=== PATIENT | female | born 1970 ===

== ENCOUNTER 2017-07-15 05:13 | Inpatient (IN) | payer MEDICAID, OTHER ==
[2017-07-15 05:20] VITALS: BMI 29.6
[2017-07-15] MEDS ORDERED: Sodium Chloride 0.9% 1,000 ML IV STA (05:34)
[2017-07-15] MEDS ORDERED: Iohexol 240 (50 ml) PO ONE ×2 (05:34)
[2017-07-15] MEDS ORDERED: Iohexol 240 (50 ml) ONE (05:41)
[2017-07-15 05:42] LABS: BASO # 0.1 K/uL (0.0-0.2); EOS # 0.2 K/uL (0.0-0.7); EOS % 1.9 % (0.0-4.0); HEMOGLOBIN 13.2 g/dL (12.0-16.0); LYMPH # 2.3 K/uL (1.0-4.3); LYMPH % 23.2 % (20.0-40.0); MEAN CELL VOLUME 88.7 fl (81.0-99.0); MEAN CORPUSCULAR HEMOGLOBIN 29.6 pg (27.0-31.0); MEAN CORPUSCULAR HGB CONC 33.4 g/dL (33.0-37.0); MEAN PLATELET VOLUME 8.4 fl (7.2-11.7); MONO # 0.8 K/uL (0.0-0.8); MONO % 7.8 % (0.0-10.0); NEUT # 6.5 K/uL (1.8-7.0); NEUT % 66.1 % (50.0-75.0); RBC 4.45 Mil/uL (3.80-5.20); RED CELL DISTRIBUTION WIDTH 13.1 % (11.5-14.5); WHITE BLOOD COUNT 9.8 K/uL (4.8-10.8)
[2017-07-15 05:48] LABS: URINE BACTERIA RARE (<OCC); URINE BILIRUBIN NEGATIVE (NEGATIVE); URINE BLOOD SMALL (NEGATIVE); URINE CLARITY CLEAR (Clear); URINE COLOR STRAW (YELLOW); URINE GLUCOSE (UA) NEG (Normal); URINE LEUKOCYTE ESTERASE NEG Leu/uL (Negative); URINE NITRATE NEGATIVE (NEGATIVE); URINE PROTEIN NEGATIVE (NEGATIVE); URINE UROBILINOGEN 0.2-1.0 mg/dL (0.2-1.0)
--- NOTE | 2017-07-15 05:49 | ED PDOC ---
HPI: Abdomen Time Seen by Provider: 07/15/17 05:20 Chief Complaint (Nursing): Abdominal Pain Chief Complaint (Provider): Abdominal Pain History Per: Patient History/Exam Limitations: no limitations Onset/Duration Of Symptoms: Hrs (x8) Current Symptoms Are (Timing): Still Present Location Of Pain/Discomfort: RUQ, RLQ Associated Symptoms: denies: Diarrhea Additional Complaint(s): 46 year old female presents to ED with complaints of right-sided abdominal pain x8 hours and has no past medical history. (+) nausea and forced vomiting. (-) diarrhea, head ache, sore throat, or body aches. Denies ever experiencing a similar pain in the past. PCP: Rodrick Amanda Past Medical History Reviewed: Historical Data, Nursing Documentation, Vital Signs Vital Signs: Last Vital Signs Temp 98.6 F 07/15/17 05:20 Pulse 100 H 07/15/17 05:20 Resp 16 07/15/17 05:20 BP 152/99 H 07/15/17 05:20 Pulse Ox 96 07/15/17 05:52 - Medical History PMH: No Chronic Diseases - Surgical History Surgical History: Denies: No Surg Hx Other surgeries: Abdominoplasty, tubal ligation - Family History Family History: States: No Known Family Hx - Social History Alcohol: None Drugs: Denies - Home Medications Home Medications: Ambulatory Orders Medication Instructions Recorded Albuterol HFA [Ventolin HFA 90 2 puff IH R3THHIN PRN #0 puff 03/28/16 mcg/actuation (8 g)] Azithromycin [Zithromax] 250 mg PO DAILY #6 tab 03/28/16 Promethazine DM [Phenergan DM Oral 5 ml PO Q8 PRN #120 ml 03/28/16 Syrup] - Allergies Allergies/Adverse Reactions: Allergies Allergy/AdvReac Type Severity Reaction Status Date / Time Sulfa (Sulfonamide Allergy RASH Verified 07/15/17 05:20 Antibiotics) Review of Systems ROS Statement: Except As Marked, All Systems Reviewed And Found Negative Constitutional: Negative for: Other ((-) body aches) ENT: Negative for: Throat Pain Gastrointestinal: Positive for: Nausea, Vomiting (forced), Abdominal Pain (right -sided). Negative for: Diarrhea Neurological: Negative for: Headache Physical Exam - Reviewed Nursing Documentation Reviewed: Yes Vital Signs Reviewed: Yes - Physical Exam Appears: Positive for: Non-toxic. Negative for: No Acute Distress (mild painful distress) Skin: Positive for: Normal Color, Warm, Dry Eye Exam: Positive for: Normal appearance ENT: Positive for: Normal ENT Inspection Cardiovascular/Chest: Positive for: Regular Rate, Rhythm. Negative for: Murmur Respiratory: Positive for: Normal Breath Sounds. Negative for: Respiratory Distress Gastrointestinal/Abdominal: Positive for: Soft, Tenderness (right-sided abdominal tenderness. RLQ>RUQ in tenderness) Extremity: Positive for: Normal ROM. Negative for: Deformity Neurologic/Psych: Positive for: Alert, Oriented. Negative for: Motor/Sensory Deficits - Laboratory Results Result Diagrams: 07/15/17 05:30 - ECG O2 Sat by Pulse Oximetry: 96 (RA) Pulse Ox Interpretation: Normal Medical Decision Making Medical Decision Makin Initial plan: * CTA A/P * Labs * Lipase * NS IV * Iohexol 50mL PO * Toradol 30mg IM * Zofran Inj 4mg IV * UA * Re-eval [address] Maguire pending CT and re-evaluation. Scribe Attestation: Documented by Lisette Peña acting as a scribe for Austin Styles DO. Scribe Attestation: All medical record entries made by the Scribe were at my direction and personally dictated by me. I have reviewed the chart and agree that the record accurately reflects my personal performance of the history, physical exam, medical decision making, and the department course for this patient. I have also personally directed, reviewed, and agree with the discharge instructions and disposition. Disposition - Disposition Disposition: Transfer of Care Disposition Time: 07:00 Forms: [employer] (Syrian) Patient Signed Over To: Jamal Maguire Handoff Comments: pending CT and re-eval
[2017-07-15 05:57] LABS: ALBUMIN 3.9 g/dL (3.5-5.0); ALT/SGPT 37 U/L (9-52); AST/SGOT 25 U/L (14-36); BLOOD UREA NITROGEN 13 mg/dl (7-17); GFR AFRICAN-AMERICAN > 60; GFR NON-AFRICAN AMERICAN > 60; LIPASE 68 U/L (23-300)
--- NOTE | 2017-07-15 07:40 | ED PDOC ---
- Laboratory Results Result Diagrams: 07/15/17 05:30 07/15/17 05:30 Interpretation Of Abn Labs: NO ACUTE - ECG O2 Sat by Pulse Oximetry: 96 (RA) Pulse Ox Interpretation: Normal - CT Scan/US ct Other Rad Studies (CT/US): Read By Radiologist Other Rad Interpretation: appendicitis - Progress ED Course And Treament: 740: Stable. AAOx3. Fu on Ct and labs. Here abd pain. 911: Spoke with Dr. Leonard's resident. Will admit. Disposition - Clinical Impression Clinical Impression: Appendicitis - POA Present On Arrival: None - Disposition Disposition: Admitted as In-Patient Disposition Time: 08:50 Condition: FAIR
[2017-07-15] MEDS ORDERED: Iohexol 300 100 ML IJ ONE (07:41)
[2017-07-15] MEDS ORDERED: Sodium Chloride 0.9% 50 ML IV ONE (07:41)
--- NOTE | 2017-07-15 08:27 | CT ---
EXAM: CT Abdomen and Pelvis With Intravenous Contrast EXAM DATE/TIME: 07/15/2017 5:34 AM CLINICAL HISTORY: 46 years old, female; Pain; Abdominal pain; Generalized; Additional info: R sided abd pain TECHNIQUE: Axial computed tomography images of the abdomen and pelvis with intravenous contrast. All CT scans at this facility use one or more dose reduction techniques, viz.: automated exposure control; ma/kV adjustment per patient size (including targeted exams where dose is matched to indication; i.e. head); or iterative reconstruction technique. Coronal and sagittal reformatted images were created and reviewed. CONTRAST: 95 mL of [id number] administered intravenously. COMPARISON: No relevant prior studies available. FINDINGS: Lower thorax: No acute findings. ABDOMEN: Liver: Subcapsular slightly lobulated hypodense lesion in posterior segment right lobe liver of approximately 2.4 cm. Gallbladder and bile ducts: Unremarkable. No calcified stones. No ductal dilation. Pancreas: Unremarkable. No mass. No ductal dilation. Spleen: Unremarkable. No splenomegaly. Adrenals: Unremarkable. No mass. Kidneys and ureters: Unremarkable. No solid mass. No hydronephrosis. Stomach and bowel: Unremarkable. No dilatation of small or large bowel. No mucosal thickening. Appendix: Enlarged appendix with thickened and edematous wall measures up to 1.4 cm in diameter. Periappendiceal fluid. PELVIS: Bladder: Unremarkable. No mass. Reproductive: Hysterectomy. ABDOMEN and PELVIS: Intraperitoneal space: Trace free fluid in the dependent pelvis. No free air. Bones/joints: No acute fracture. Soft tissues: Streaky fatty replacement and left greater than right gluteus adrianna muscles. Vasculature: Unremarkable. No abdominal aortic aneurysm. Lymph nodes: No enlarged lymph nodes. IMPRESSION: 1. Acute appendicitis. No sign of perforation, no abscess. 2. Indeterminate hypodense hepatic lesion. ACR White Paper guidelines (Katya, et al. JACR 2010; 7(10):752-12) suggest follow-up abdominal CT or MR in 6 months for patients with low risk of malignancy, multiphasic MR for average risk patients and core biopsy for high risk patients. 3. Lipoma/lipomatosis left greater than right gluteus adrianna muscles.
[2017-07-15] MEDS ORDERED: Piperacillin/Tazobact 3.375 GM in Sodium Chloride 0.9% 100 ML IV STA (08:50)
[2017-07-15] MEDS ORDERED: Piperacillin/Tazobact 3.375 gm Inj IVPB ONE ×2 (09:53→16:00)
--- NOTE | 2017-07-15 10:02 | CP.PCM.HP ---
History of Present Illness - History of Present Illness History of Present Illness: General Surgery Dr. Leonard 46 y/o F w/ no significant PMHx presents to the ED c/o RLQ abd pain. Pt is frisian speaking. Daughter is present at bedside providing translation. Pt reports pain started last evening. 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 Last evening, pain was originally diffuse in both lower quadrants; however, is now more localized to the RLQ. Pt reports pain radiating down R leg. Pt admits to nausea and subjective fevers but no vomiting, D/C. PMHx: tachycardia Meds: reviewed in chart ALL: Sulfa PSHx: abdominoplasty; hysterectomy SHx: denies tobacco, drug use. admits to 1-2beers on weekends FHx: non-contributory Present on Admission - Present on Admission Any Indicators Present on Admission: No Review of Systems - Review of Systems All systems: reviewed and no additional remarkable complaints except (see HPI) Past Patient History - Past Social History Alcohol: None Drugs: Denies - GENITOURINARY/GYNECOLOGICAL Hx Genitourinary Disorders: Yes Other/Comment: Hx Uterine Fibroids - PSYCHIATRIC Hx Substance Use: No - SURGICAL HISTORY Hx Surgeries: Yes Hx Hysterectomy: Yes Hx Tubal Ligation: Yes Other/Comment: Hx Abdominoplasty - ANESTHESIA Hx Anesthesia: Yes Hx Anesthesia Reactions: No Hx Malignant Hyperthermia: No Meds Allergies/Adverse Reactions: Allergies Allergy/AdvReac Type Severity Reaction Status Date / Time Sulfa (Sulfonamide Allergy RASH Verified 07/15/17 05:20 Antibiotics) Physical Exam - Constitutional Appears: Non-toxic, No Acute Distress - Head Exam Head Exam: NORMAL INSPECTION - Eye Exam Eye Exam: Normal appearance - ENT Exam ENT Exam: Mucous Membranes Moist - Respiratory Exam Respiratory Exam: NORMAL BREATHING PATTERN. absent: Accessory Muscle Use, Respiratory Distress - GI/Abdominal Exam GI & Abdominal Exam: Guarding (voluntary), Soft, Tenderness (RLQ). absent: Distended, Rebound, Rigid - Expanded GI/Abdominal Exam Expanded Expanded GI & Abdominal Exam: Obturator Sign, Psoas Sign, Rovsing's Sign, McBurney's Point Tenderness - Extremities Exam Extremities exam: Positive for: normal inspection - Neurological Exam Neurological exam: Alert, Oriented x3 - Psychiatric Exam Psychiatric exam: Normal Affect, Normal Mood - Skin Skin Exam: Dry, Intact, Normal Color, Warm Results - Vital Signs Recent Vital Signs: Last Vital Signs Temp 98.5 F 07/15/17 09:08 Pulse 83 07/15/17 09:08 Resp 17 07/15/17 09:08 BP 122/71 07/15/17 09:08 Pulse Ox 96 07/15/17 09:11 - Labs Result Diagrams: 07/15/17 05:30 07/15/17 05:30 Labs: Laboratory Results - last 24 hr 07/15/17 07/15/17 07/15/17 05:30 05:30 05:30 WBC 9.8 RBC 4.45 Hgb 13.2 Hct 39.4 MCV 88.7 MCH 29.6 MCHC 33.4 RDW 13.1 Plt Count 244 MPV 8.4 Neut % (Auto) 66.1 Lymph % (Auto) 23.2 [place] % (Auto) 7.8 Eos % (Auto) 1.9 Baso % (Auto) 1.0 Neut # (Auto) 6.5 Lymph # (Auto) 2.3 [place] # (Auto) 0.8 Eos # (Auto) 0.2 Baso # (Auto) 0.1 Sodium 140 Potassium 3.9 Chloride 104 Carbon Dioxide 26 Anion Gap 14 BUN 13 Creatinine 0.7 Est GFR ( Amer) > 60 Est GFR (Non-Af Amer) > 60 Random Glucose 111 H Calcium 9.0 Total Bilirubin 0.9 AST 25 ALT 37 Alkaline Phosphatase 76 Total Protein 7.9 Albumin 3.9 Globulin 4.0 H Albumin/Globulin Ratio 1.0 Lipase 68 Urine Color Straw Urine Clarity Clear Urine pH 8.0 Ur Specific [place] 1.013 Urine Protein Negative Urine Glucose (UA) Neg Urine Ketones Negative Urine Blood Small Urine Nitrate Negative Urine Bilirubin Negative Urine Urobilinogen 0.2-1.0 Ur Leukocyte Esterase Neg Urine RBC (Auto) 5 H Urine Microscopic WBC < 1 Urine Bacteria Rare - Imaging and Cardiology CT scan - abdomen Status: Image reviewed by me, Report reviewed by me Assessment & Plan - Assessment and Plan (Free Text) Assessment: 46 y/o F w/ RLQ abd pain 2/2 acute appendicitis - NPO, IVF - Zosyn Q6 - pain management - anti-emetic - OR today for laparoscopic appendectomy - consent to be obtained Pt discussed w/ Dr. Horacio Hackett DO PGY2
[2017-07-15] MEDS: Sodium Chloride 0.9% 1,000 ML IV SCH ×2 (10:03→19:40)
[2017-07-15] MEDS: Piperacillin/Tazobact 3.375 GM in Sodium Chloride 0.9% 100 ML IVPB SCH ×3 (10:12→20:59)
[2017-07-15] MEDS ORDERED: Succinylcholine 200 mg/10 ml Inj IV ONE (10:54)
[2017-07-15] MEDS ORDERED: Neostigmine Methylsulfate 3mg/3ml Syringe IV ONE (10:54)
[2017-07-15] MEDS ORDERED: Midazolam 2 MG/2 ML VIAL ONE (10:54)
[2017-07-15] MEDS ORDERED: Propofol 10 mg/ml Inj (20 ML) ONE (10:54)
[2017-07-15] MEDS ORDERED: Rocuronium 10 mg/ml (5 ml) ONE (10:54)
[2017-07-15] MEDS ORDERED: Lactated Ringer's 1,000 ML IV ONE ×2 (11:33→12:20)
[2017-07-15] MEDS ORDERED: Dexamethasone 4 mg/1 ml ONE (11:48)
[2017-07-15] MEDS ORDERED: Neostigmine Methylsulfate 2 MG/2 ML ML IV ONE (11:57)
[2017-07-15] MEDS ORDERED: HYDROmorphone 0.5 mg/0.5 ml ISec IVP PRN (13:02)
--- NOTE | 2017-07-15 13:06 | PCM.SURG1 ---
Surgeon's Initial Post Op Note - Surgeon's Notes Surgeon: Dr Leonard Manager Hvac: Dr Molina PGY3, Dr Olmos PGY1 Type of Anesthesia: General Endo Pre-Operative Diagnosis: acute appendicitis Operative Findings: phlegmonous appendicitis Post-Operative Diagnosis: as above Operation Performed: laparoscopic appendectomy Specimen/Specimens Removed: appendix Estimated Blood Loss: EBL {In ML}: 25 Blood Products Given: N/A Drains Used: No Drains Post-Op Condition: Good Date of Surgery/Procedure: 07/15/17 Time of Surgery/Procedure: 13:06
[2017-07-15] MEDS: Oxycodone/Acetaminophen 5/325 mg Tab PO PRN (20:03)
[2017-07-16] MEDS: Sodium Chloride 0.9% 1,000 ML IV SCH ×3 (02:30→10:37)
[2017-07-16] MEDS: Piperacillin/Tazobact 3.375 GM in Sodium Chloride 0.9% 100 ML IVPB SCH ×4 (04:39→22:06)
--- NOTE | 2017-07-16 10:03 | OP ---
PROCEDURE DATE: 07/15/2017 SURGEON: Flaquito Leonard MD PRESS OPERATOR ASSISTANT: Dr. Molina and Dr. Olmos ANESTHESIA: General. ANESTHESIOLOGIST: Favio Dean MD PREOPERATIVE DIAGNOSIS: Acute appendicitis POSTOPERATIVE DIAGNOSIS: Acute phlegmonous appendicitis. PROCEDURE: Laparoscopic appendectomy. DESCRIPTION OF OPERATION: With the patient in the supine position under adequate general anesthesia, the abdomen was prepped and draped in the usual sterile manner. Veress needle puncture was performed at the umbilicus with insufflation to 15 cm water pressure of CO2 and a 10 mm laparoscopic trocar was inserted via an infraumbilical incision. Under direct vision, 5 to 12 mm trocars were inserted in the left lower quadrant. The right lower quadrant was inspected and with gentle retraction of the cecum, the appendix was identified adherent to the right pelvic sidewall as well as the lateral surface of the cecum. The appendix was markedly dilated and phlegmonous and also angulated 180 degrees. The cecum was elevated and the appendix was gently freed from the surface of the cecum. The mesentery was windowed and an Endo-SRINIVAS stapler was used to divide the appendix close to the cecum and then with gentle traction on the appendix, the needle appendix was divided using a harmonic scalpel with overlying inflammatory attachments as well being divided with the harmonic scalpel until the appendix could be freed completely from the sidewall attachments. The operative site was examined for hemostasis and the appendix was placed in a specimen retrieval bag and removed via the 12 mm port site. The right lower quadrant was irrigated and suctioned. The pneumoperitoneum was released and the trocars were removed. The umbilical and 12-mm port sites were closed with [id number] fascial sutures of 0 Vicryl. All incisions were closed with 4-0 Monocryl and Steri-Strips. Dry sterile dressings were applied. The patient tolerated the procedure well and transferred to recovery room in stable condition. Estimated blood loss for the procedure was 25 mL. Flaquito Leonard MD
[2017-07-16] MEDS: Oxycodone/Acetaminophen 5/325 mg Tab PO PRN ×3 (11:51→23:14)
--- NOTE | 2017-07-16 13:31 | CP.PCM.PN ---
Subjective - Date & Time of Evaluation Date of Evaluation: 07/16/17 Time of Evaluation: 13:27 - Subjective Subjective: Gen Sx: Dr Leonard Pt S&E. JANAK. Complaining of pain to lower abdomen. Difficulty walking for extended period of time, likely due to soreness 2/2 surgery as pt had a significantly inflammed/infected appendix. Tolerating PO intake but not taking in much. Denies N/V, F/C. Passing flatus. Objective - Vital Signs/Intake and Output Vital Signs (last 24 hours): Temp Pulse Resp BP Pulse Ox 98.5 F 69 20 109/72 99 07/16/17 08:13 07/16/17 08:13 07/16/17 08:13 07/16/17 08:13 07/16/17 08:13 - Medications Medications: Current Medications Sodium Chloride (Sodium Chloride 0.9%) 1,000 mls @ 125 mls/hr IV .Q8H [facility] Last Admin: 07/16/17 10:37 Dose: Not Given Piperacillin Sod/Tazobactam (Sod 3.375 gm/ Sodium Chloride) 100 mls @ 100 mls/ hr IVPB Q6 [facility] PRN Reason: Protocol Last Admin: 07/16/17 09:42 Dose: 100 mls/hr Ondansetron HCl (Zofran Inj) 4 mg IVP Q6 PRN PRN Reason: Nausea/Vomiting Last Admin: 07/15/17 10:07 Dose: 4 mg Oxycodone/Acetaminophen (Percocet 5/325 Mg Tab) 1 tab PO Q4 PRN PRN Reason: Pain, Mild (1-3) Stop: 07/18/17 13:02 Last Admin: 07/16/17 11:51 Dose: 1 tab - Labs Labs: 07/15/17 05:30 07/15/17 05:30 - Constitutional Appears: Non-toxic, No Acute Distress - Eye Exam Eye Exam: Normal appearance - Respiratory Exam Respiratory Exam: absent: Accessory Muscle Use, Respiratory Distress - Cardiovascular Exam Cardiovascular Exam: REGULAR RHYTHM - GI/Abdominal Exam GI & Abdominal Exam: Soft, Tenderness (post surgical). absent: Distended, Firm , Guarding Additional comments: incisions c/d/i - Neurological Exam Neurological Exam: Alert, Awake, Oriented x3 Assessment and Plan - Assessment and Plan (Free Text) Assessment: 46F POD#1 s/p lap appy Plan: cont current mgmt would benefit from additional day of IV abx given degree of appendicitis will d.c tomorrow d/w Dr Horacio Molina, PGY3
[2017-07-17] MEDS: Piperacillin/Tazobact 3.375 GM in Sodium Chloride 0.9% 100 ML IVPB SCH ×2 (04:15→09:29)
[2017-07-17 05:24] VITALS: TEMP 97.9
[2017-07-17] MEDS: Oxycodone/Acetaminophen 5/325 mg Tab PO PRN (05:41)
--- NOTE | 2017-07-17 07:34 | CP.PCM.DIS ---
Provider - Provider Date of Admission: 07/15/17 09:12 Attending physician: Flaquito Leonard MD Time Spent in preparation of Discharge (in minutes): 5 Hospital Course - Lab Results Lab Results: Micro Results 07/15/17 12:30 Blood Blood Culture - Preliminary NO GROWTH AFTER 24 HOURS 07/15/17 11:22 Blood Blood Culture - Preliminary NO GROWTH AFTER 24 HOURS Most Recent Lab Values WBC 9.8 K/uL (4.8-10.8) 07/15/17 05:30 RBC 4.45 Mil/uL (3.80-5.20) 07/15/17 05:30 Hgb 13.2 g/dL (12.0-16.0) 07/15/17 05:30 Hct 39.4 % (34.0-47.0) 07/15/17 05:30 MCV 88.7 fl (81.0-99.0) 07/15/17 05:30 MCH 29.6 pg (27.0-31.0) 07/15/17 05:30 MCHC 33.4 g/dL (33.0-37.0) 07/15/17 05:30 RDW 13.1 % (11.5-14.5) 07/15/17 05:30 Plt Count 244 K/uL (130-400) 07/15/17 05:30 MPV 8.4 fl (7.2-11.7) 07/15/17 05:30 Neut % (Auto) 66.1 % (50.0-75.0) 07/15/17 05:30 Lymph % (Auto) 23.2 % (20.0-40.0) 07/15/17 05:30 [place] % (Auto) 7.8 % (0.0-10.0) 07/15/17 05:30 Eos % (Auto) 1.9 % (0.0-4.0) 07/15/17 05:30 Baso % (Auto) 1.0 % (0.0-2.0) 07/15/17 05:30 Neut # (Auto) 6.5 K/uL (1.8-7.0) 07/15/17 05:30 Lymph # (Auto) 2.3 K/uL (1.0-4.3) 07/15/17 05:30 [place] # (Auto) 0.8 K/uL (0.0-0.8) 07/15/17 05:30 Eos # (Auto) 0.2 K/uL (0.0-0.7) 07/15/17 05:30 Baso # (Auto) 0.1 K/uL (0.0-0.2) 07/15/17 05:30 Sodium 140 mmol/l (132-148) 07/15/17 05:30 Potassium 3.9 MMOL/L (3.6-5.0) 07/15/17 05:30 Chloride 104 mmol/L (98-107) 07/15/17 05:30 Carbon Dioxide 26 mmol/L (22-30) 07/15/17 05:30 Anion Gap 14 (10-20) 07/15/17 05:30 BUN 13 mg/dl (7-17) 07/15/17 05:30 Creatinine 0.7 mg/dl (0.7-1.2) 07/15/17 05:30 Est GFR ( Amer) > 60 07/15/17 05:30 Est GFR (Non-Af Amer) > 60 07/15/17 05:30 Random Glucose 111 mg/dL (65-105) H 07/15/17 05:30 Calcium 9.0 mg/dL (8.4-10.2) 07/15/17 05:30 Total Bilirubin 0.9 mg/dl (0.2-1.3) 07/15/17 05:30 AST 25 U/L (14-36) 07/15/17 05:30 ALT 37 U/L (9-52) 07/15/17 05:30 Alkaline Phosphatase 76 U/L (38-126) 07/15/17 05:30 Total Protein 7.9 G/DL (6.3-8.2) 07/15/17 05:30 Albumin 3.9 g/dL (3.5-5.0) 07/15/17 05:30 Globulin 4.0 gm/dL (2.2-3.9) H 07/15/17 05:30 Albumin/Globulin Ratio 1.0 (1.0-2.1) 07/15/17 05:30 Lipase 68 U/L (23-300) 07/15/17 05:30 Urine Color Straw (YELLOW) 07/15/17 05:30 Urine Clarity Clear (Clear) 07/15/17 05:30 Urine pH 8.0 (5.0-8.0) 07/15/17 05:30 Ur Specific [place] 1.013 (1.003-1.030) 07/15/17 05:30 Urine Protein Negative mg/dL (NEGATIVE) 07/15/17 05:30 Urine Glucose (UA) Neg mg/dL (Normal) 07/15/17 05:30 Urine Ketones Negative mg/dL (NEGATIVE) 07/15/17 05:30 Urine Blood Small (NEGATIVE) 07/15/17 05:30 Urine Nitrate Negative (NEGATIVE) 07/15/17 05:30 Urine Bilirubin Negative (NEGATIVE) 07/15/17 05:30 Urine Urobilinogen 0.2-1.0 mg/dL (0.2-1.0) 07/15/17 05:30 Ur Leukocyte Esterase Neg [place]/uL (Negative) 07/15/17 05:30 Urine RBC (Auto) 5 /hpf (0-3) H 07/15/17 05:30 Urine Microscopic WBC < 1 /hpf (0-5) 07/15/17 05:30 Urine Bacteria Rare (<OCC) 07/15/17 05:30 - Hospital Course Hospital Course: 46F admitted to hospital with dx of acute appendicitis. Taken to OR for laparoscopic appendectomy. Tolerated well. KEpt additional 2 nights for pain management and further IV antibiotics since appendicitis was phlegmonous. D/C today 07/17/17 with Rx for percocet, tolerating diet, having BMs Discharge Exam - Head Exam Head Exam: NORMAL INSPECTION - ENT Exam ENT Exam: Mucous Membranes Moist - Respiratory Exam Respiratory Exam: absent: Accessory Muscle Use, Respiratory Distress - Cardiovascular Exam Cardiovascular Exam: Tachycardia. absent: REGULAR RHYTHM - GI/Abdominal Exam GI & Abdominal Exam: Tenderness (post-surgical). absent: Distended, Firm, Guarding, Hernia, Soft Additional comments: dressing c/d/i - Neurological Exam Neurological exam: Alert, Oriented x3 Discharge Plan - Discharge Medications Prescriptions: oxyCODONE/Acetaminophen [Percocet 5/325 mg Tab] 1 tab PO Q4 PRN #12 tab PRN Reason: Pain, Mild (1-3) - Follow Up Plan Condition: FAIR Disposition: HOME/ ROUTINE Instructions: Laparoscopic Appendectomy (DC) Referrals: Flaquito Leonard MD [Staff Provider] - Lucian Amanda MD [Family Provider] -
[2017-07-17 08:06] VITALS: BP 119/77; PULSE 71; RESP 20; O2SAT 100
== END 2017-07-17 13:52 | disposition home or self-care (01) | DRG 883 ==
LOC: H.ER 05:13 → H.ERHOLD 09:12 → H.MEDSURG1 16:23
PROVIDERS: ADMIT Specialist; ATTEND Specialist
PROC: 0DTJ4ZZ Resection of Appendix, Percutaneous Endoscopic Approach (ICD-10-PCS; principal; 2017-07-15 12:00)
DX: K35.80 Unspecified acute appendicitis (principal); Z88.2 Allergy status to sulfonamides; Z90.710 Acquired absence of both cervix and uterus

== ENCOUNTER 2017-10-29 12:17 | Emergency (ER) | payer MEDICAID ==
[2017-10-29 12:17] VITALS: BMI 29.6
[2017-10-29 12:30] VITALS: O2SAT 100
--- NOTE | 2017-10-29 12:50 | ED PDOC ---
HPI: Chest Pain Time Seen by Provider: 10/29/17 12:32 Chief Complaint (Nursing): Chest Pain History Per: Patient Onset/Duration Of Symptoms: Days (2) Current Symptoms Are (Timing): Intermittent Episodes Severity: Mild Pain Scale Rating Of: 2 Quality: Aching Associated Symptoms: Dyspnea Exacerbating Factors: Deep Breathing Alleviating Factors: None Additional Complaint(s): Chest pain assoc with inspiration and SOB since last night. Nonradiating. Denies fever or cough. No calf pain or swelling Past Medical History Vital Signs: Last Vital Signs Temp Pulse 74 10/29/17 12:24 Resp 16 10/29/17 12:24 BP 138/90 10/29/17 12:24 Pulse Ox 100 10/29/17 12:49 - Medical History PMH: No Chronic Diseases - Family History Family History: States: Unknown Family Hx - Home Medications Home Medications: Ambulatory Orders Medication Instructions Recorded [place]-3 Fatty Acids/Fish Oil 1 cap PO DAILY 07/15/17 [[place]-3 1,000 mg Softgel] oxyCODONE/Acetaminophen [Percocet 1 tab PO Q4 PRN #12 tab 07/17/17 5/325 mg Tab] Naproxen [Naprosyn] 500 mg PO Q12H #20 tab 10/29/17 - Allergies Allergies/Adverse Reactions: Allergies Allergy/AdvReac Type Severity Reaction Status Date / Time Sulfa (Sulfonamide Allergy RASH Verified 07/15/17 05:20 Antibiotics) Review of Systems ROS Statement: Except As Marked, All Systems Reviewed And Found Negative Cardiovascular: Positive for: Chest Pain Physical Exam - Reviewed Nursing Documentation Reviewed: Yes Vital Signs Reviewed: Yes - Physical Exam Appears: Positive for: Non-toxic, No Acute Distress Head Exam: Positive for: ATRAUMATIC, NORMAL INSPECTION, NORMOCEPHALIC Skin: Positive for: Normal Color, Warm, DRY Eye Exam: Positive for: EOMI, Normal appearance, PERRL ENT: Positive for: Normal ENT Inspection Neck: Positive for: Normal, Painless ROM Cardiovascular/Chest: Positive for: Regular Rate, Rhythm Respiratory: Positive for: CNT, Normal Breath Sounds Gastrointestinal/Abdominal: Positive for: Normal Exam, Soft Back: Positive for: Normal Inspection Extremity: Positive for: Normal ROM Neurologic/Psych: Positive for: Alert, Oriented - Laboratory Results Result Diagrams: 10/29/17 13:17 10/29/17 14:02 - ECG O2 Sat by Pulse Oximetry: 100 Disposition - Clinical Impression Clinical Impression: Pleuritic chest pain - Patient ED Disposition Is Patient to be Admitted: No Counseled Patient/Family Regarding: Studies Performed, Diagnosis, Need For Followup, Rx Given - Disposition Referrals: [facility] [Outside] Disposition: Routine/Home Disposition Time: 15:22 Condition: FAIR Prescriptions: Naproxen [Naprosyn] 500 mg PO Q12H #20 tab Instructions: Pleuritic Chest Pain Forms: [facility] ([place]) Print Language: TURKMEN
[2017-10-29 13:29] LABS: BASO % 0.6 % (0.0-2.0); EOS # 0.2 K/uL (0.0-0.7); EOS % 3.2 % (0.0-4.0); HEMOGLOBIN 13.8 g/dL (12.0-16.0); LYMPH % 42.9 % (20.0-40.0); MEAN CELL VOLUME 88.3 fl (81.0-99.0); MEAN CORPUSCULAR HEMOGLOBIN 30.2 pg (27.0-31.0); MEAN CORPUSCULAR HGB CONC 34.2 g/dL (33.0-37.0); MEAN PLATELET VOLUME 8.8 fl (7.2-11.7); MONO # 0.7 K/uL (0.0-0.8); NEUT % 43.3 % (50.0-75.0); RBC 4.57 Mil/uL (3.80-5.20); RED CELL DISTRIBUTION WIDTH 13.3 % (11.5-14.5); WHITE BLOOD COUNT 6.9 K/uL (4.8-10.8)
--- NOTE | 2017-10-29 14:16 | RAD ---
HISTORY: chest pain COMPARISON: 03/28/2016 TECHNIQUE: Chest PA and lateral FINDINGS: LUNGS: No active pulmonary disease. PLEURA: No significant pleural effusion identified. No pneumothorax apparent. CARDIOVASCULAR: Probable top-normal heart size OSSEOUS STRUCTURES: Inferior moderate thoracic spondylosis. VISUALIZED UPPER ABDOMEN: Normal. OTHER FINDINGS: None. IMPRESSION: No active disease.
[2017-10-29 14:41] LABS: ALB/GLOB RATIO 0.9 (1.0-2.1); ALBUMIN 3.8 g/dL (3.5-5.0); ALT/SGPT 23 U/L (9-52); AST/SGOT 26 U/L (14-36); BLOOD UREA NITROGEN 9 mg/dl (7-17); CALCIUM 9.2 mg/dL (8.4-10.2); GFR AFRICAN-AMERICAN > 60; GFR NON-AFRICAN AMERICAN > 60
[2017-10-29 16:29] VITALS: BP 149/85; PULSE 85; RESP 18
== END 2017-10-29 16:00 | disposition home or self-care (01) ==
LOC: H.ER 12:17
DX: R07.1 Chest pain on breathing (principal)